=== PATIENT | female | born 2000 | race Caucasian/White ===

== ENCOUNTER 2021-03-04 20:14 | Emergency (ER) | payer MEDICAID ==
[~2021-03-04] VITALS: Ht 162.6 cm; Wt 62.3 kg
[2021-03-04 20:37] VITALS: BP 122/75
[2021-03-04] MEDS ORDERED: orphenadrine citrate 60mg/2ml inj. IM ONE (22:25)
[2021-03-04] MEDS ORDERED: ketorolac trometh inj. 60 MG/2 ML VIAL IM ONE (22:25)
[2021-03-04] MEDS ORDERED: KETO10TA2 PO (22:26)
[2021-03-04] MEDS ORDERED: ORPH100T2 PO (22:26)
== END 2021-03-04 22:36 | disposition home or self-care (01) ==
LOC: ER 20:15
DX: M54.5 Low back pain (principal); M62.830 Muscle spasm of back; R53.1 Weakness; Z98.890 Other specified postprocedural states; Z79.899 Other long term (current) drug therapy
CPT/HCPCS: 96372; 99284; J1885; J2360

== ENCOUNTER 2021-03-28 22:27 | Emergency (ER) | payer MEDICAID, OTHER ==
[~2021-03-28] VITALS: Ht 162.6 cm; Wt 61.4 kg
[~2021-03-28 22:27] MED LIST: KETO10TA2 PO; ORPH100T2 PO
[2021-03-29] MEDS ORDERED: HYDR-3965 PO (00:26)
[2021-03-29] MEDS ORDERED: ketorolac trometh. 30mg/ml inj. IV ONE (00:30)
[2021-03-29 00:44] VITALS: BP 130/80
== END 2021-03-29 01:05 | disposition home or self-care (01) ==
LOC: ER 22:28
DX: R07.9 Chest pain, unspecified (principal); R41.82 Altered mental status, unspecified; R51.9 Headache, unspecified; V98.8XXA Other specified transport accidents, initial encounter; Y93.89 Activity, other specified; Y92.89 Other specified places as the place of occurrence of the external cause; Y99.8 Other external cause status
CPT/HCPCS: 71045; 96372; 99283; J1885

== ENCOUNTER 2021-03-29 08:46 | Emergency (ER) | payer MEDICAID, OTHER ==
[~2021-03-29] VITALS: Ht 162.6 cm; Wt 61.4 kg
[~2021-03-29 08:46] MED LIST changes: +HYDR-3965 PO
[2021-03-29 08:50] VITALS: BP 115/75
--- NOTE | 2021-03-29 09:10 | NUR ---
CERVICAL COLLAR APPLIED FOR NOW. PATIENT AWAITING CT SCAN.
[2021-03-29] MEDS ORDERED: HYDROcodone/acetaminophen 5mg/325mg tablet PO ONE (10:55)
== END 2021-03-29 11:34 | disposition home or self-care (01) ==
LOC: ER 08:47
DX: S22.22XD Fracture of body of sternum, subsequent encounter for fracture with routine healing (principal); V87.7XXD Person injured in collision between other specified motor vehicles (traffic), subsequent encounter
CPT/HCPCS: 72125; 72128; 93005; 99285

== ENCOUNTER 2021-08-22 02:29 | Emergency (ER) | payer MEDICAID, OTHER ==
[~2021-08-22] VITALS: Ht 162.6 cm; Wt 64.5 kg
[~2021-08-22 02:29] MED LIST changes: -HYDR-3965 PO
[2021-08-22] MEDS ORDERED: magnesium 2GM in 50ml NS 50 ML IV ONE (06:35)
[2021-08-22] MEDS ORDERED: ringers solution, lacted 1,000 ML IV ONE (06:35)
[2021-08-22] MEDS ORDERED: metoclopramide 5 mg/ml inj IV ONE (06:35)
[2021-08-22] MEDS ORDERED: meclizine 12.5mg tablet PO ONE (06:35)
[2021-08-22] MEDS ORDERED: metoclopramide 5 mg/ml inj IV PRN (06:45)
[2021-08-22 09:00] VITALS: BP 101/57
[2021-08-22] MEDS ORDERED: METO-292 PO (10:37)
== END 2021-08-22 12:52 | disposition home or self-care (01) ==
LOC: ER 12:51
DX: R42 Dizziness and giddiness (principal); G43.809 Other migraine, not intractable, without status migrainosus; Z98.890 Other specified postprocedural states; Z79.899 Other long term (current) drug therapy
CPT/HCPCS: 96365; 96375; 96376; 99284; J2765; J3475; J7120; J8597